=== PATIENT | male | born 1960 | race Caucasian/White ===

== ENCOUNTER 2016-12-08 14:44 | Emergency (ER) | payer OTHER, BC ==
[~2016-12-08] VITALS: Ht 182.9 cm; Wt 79.0 kg
[~2016-12-08 14:44] MED LIST: ALLOPURINOL300 MG PO; ASPIR 8181 M1 PO; Bactrim,Septra Singl PO; CARVEDILOL12.5 MG PO; COLCRYS0.6 MG PO; COREG CR40 MG PO; ENDOCET 5-3251 EACH PO; FLOMAX0.4 MG PO; HYDROCODON-ACE1 EAC7 PO; LOSARTAN POTAS100 MG PO; OXAYDO5 MG PO; PRILOSEC OTC20 M1 PO; PRILOSEC40 MG PO; ZOFRAN8 MG PO; ZYLOPRIM300 MG PO
[2016-12-08 19:50] VITALS: BP 154/75
== END 2016-12-08 19:51 | disposition home or self-care (01) ==
LOC: EME 14:44
DX: S09.90XA Unspecified injury of head, initial encounter (principal); W20.8XXA Other cause of strike by thrown, projected or falling object, initial encounter; Y93.89 Activity, other specified; Y92.810 Car as the place of occurrence of the external cause
CPT/HCPCS: 99281; 99283